=== PATIENT | female | born 1995 | race Caucasian/White ===

== ENCOUNTER 2017-01-16 09:32 | Observation (INO) | payer MEDICAID ==
[~2017-01-16] VITALS: Ht 160 cm; Wt 76.2 kg
[~2017-01-16 09:32] MED LIST: FERR325E14 PO; FOLI1TAB19 PO; PREN-385 PO
[2017-01-16 09:40] VITALS: BP 117/70
== END 2017-01-16 10:59 | disposition home or self-care (01) ==
LOC: MLD 09:32
PROVIDERS: ADMIT Obstetrics & Gynecology; ATTEND Obstetrics & Gynecology
DX: O62.9 Abnormality of forces of labor, unspecified (principal); Z3A.38 38 weeks gestation of pregnancy
CPT/HCPCS: 81000; G0378

== ENCOUNTER 2017-01-30 10:14 | Inpatient (IN) | payer MEDICAID ==
[~2017-01-30] VITALS: Ht 157.5 cm; Wt 75.0 kg
[2017-01-30 10:51] VITALS: BP 132/83
[2017-01-30] MEDS ORDERED: OXYTOCIN 20 UNITS in LACTATED RINGERS 1,000 ML IV SCH (13:47)
[2017-01-30] MEDS ORDERED: LACTATED RINGERS 1,000 ML IV SCH (13:47)
[2017-01-30] MEDS ORDERED: OXYTOCIN 10 UNITS/ML VIAL IM SCH (13:50)
[2017-01-30] MEDS ORDERED: NALBUPHINE 10 MG/ML AMP IVP PRN (13:50)
[2017-01-30 14:13] LABS: RED CELL DISTRIBUTION WIDTH 15.3 % (11.6-13.7)
[2017-01-30 14:16] LABS: BILIRUBIN,URINE NEGATIVE (NEGATIVE); BLOOD, URINE TRACE-L (NEGATIVE); COLOR,URINE YELLOW (YELLOW); LEUKOCYTE ESTERASE ,URINE 2+ (NEGATIVE); NITRITE, URINE POSITIVE (NEGATIVE); UGLUCOSE NEGATIVE (NEGATIVE)
[2017-01-30 14:26] LABS: BASOPHILS # (AUTO) 0.1 K/uL (0.00-0.22); BASOPHILS % (AUTO) 1.2 % (0.0-2.0); EOSINOPHILS # (AUTO) 0.1 K/uL (0-0.4); EOSINOPHILS % (AUTO) 0.9 % (0.0-4.0); HEMOGLOBIN 11.5 g/dL (12.0-16.0); LYMPHOCYTES # (AUTO) 1.8 K/uL (2.5-16.5); LYMPHOCYTES % (AUTO) 29.5 % (20.5-51.1); MEAN CORPUSCULAR HEMOGLOBIN 27 pg (27-31); MEAN CORPUSCULAR HGB CONC 33 g/dL (33-37); MEAN CORPUSCULAR VOLUME 81 fL (80-94); MONOCYTES # (AUTO) 0.5 K/uL (0.8-1.0); MONOCYTES % (AUTO) 7.9 % (1.7-9.3); NEUTROPHILS # (AUTO) 3.7 K/uL (1.8-7.7); NEUTROPHILS % (AUTO) 60.5 % (42.2-75.2); PLATELET COUNT (AUTO) 138 K/uL (140-450); WHITE BLOOD COUNT (AUTO) 6.2 K/uL (4.8-10.8)
[2017-01-30 14:29] LABS: APPEARANCE,URINE HAZY (CLEAR)
[2017-01-30 14:43] LABS: RBC,URINE 0-5 (RARE) /HPF (0-5)
[2017-01-30] MEDS: MISOPROSTOL 25 MCG TAB VG PRN ×2 (14:57→18:54)
[2017-01-30] MEDS ORDERED: MISOPROSTOL 25 MCG TAB ONE ×2 (15:03→18:51)
[2017-01-30] MEDS ORDERED: OXYTOCIN 10 UNITS/ML VIAL ONE (21:40)
[2017-01-30] MEDS ORDERED: OXYTOCIN 20 UNITS/LR PREMIX 1,000 ML IV ONE (21:40)
[2017-01-30] MEDS ORDERED: BENZOCAINE/MENTHOL 20%-0.5% 60 GM CAN TP PRN (22:10)
[2017-01-30] MEDS ORDERED: HYDROcodone/APAP 5/325 MG 1 TAB TAB PO PRN (22:10)
[2017-01-30] MEDS ORDERED: MEASLES, MUMPS, AND RUBELLA 1 VIAL SQVAC PRN (22:10)
[2017-01-30] MEDS ORDERED: METHYLERGONOVINE 0.2 MG/ML AMP IM PRN (22:10)
[2017-01-30] MEDS ORDERED: OXYTOCIN 10 UNITS/ML VIAL IM PRN (22:10)
[2017-01-30] MEDS ORDERED: oxyCODONE/APAP 5/325 MG 1 TAB TAB PO PRN (22:10)
[2017-01-30] MEDS ORDERED: TEMAZEPAM 15 MG CAP PO PRN (22:10)
[2017-01-30] MEDS ORDERED: HYDROcodone/APAP 5/325 MG 1 TAB TAB ONE (22:27)
[2017-01-31 06:18] LABS: HEMATOCRIT 34.7 % (36-48); HEMOGLOBIN 11.4 g/dL (12.0-16.0)
--- NOTE | 2017-01-31 09:58 | NUR ---
PATIENT HAS BEEN SCREENED AND CATEGORIZED LOW NUTRITION RISK. PATIENT WILL BE SEEN WITHIN 7 DAYS OF ADMISSION. 02/06/[address]
[2017-01-31] MEDS: IBUPROFEN 800 MG TAB PO PRN (19:37)
[2017-01-31] MEDS ORDERED: DOCUSATE SOD/SENNA 50/8.6 MG 1 TAB PO SCH (21:00)
[2017-02-01] MEDS ORDERED: IBUPROFEN 800 MG TAB ONE (09:08)
[2017-02-01] MEDS: IBUPROFEN 800 MG TAB PO PRN ×2 (09:09→20:32)
== END 2017-02-01 22:15 | disposition home or self-care (01) | DRG 560 ==
LOC: MLD 10:14 → OBSVTOIN 10:14 → MLD 13:35 → MFCC 01-31 00:15
PROVIDERS: ADMIT Obstetrics & Gynecology; ATTEND Obstetrics & Gynecology
PROC: 10E0XZZ Delivery of Products of Conception, External Approach (ICD-10-PCS; principal; 2017-01-30)
PROC: 3E0P7VZ Introduction of Hormone into Female Reproductive, Via Natural or Artificial Opening (ICD-10-PCS; 2017-01-30)
DX: O48.0 Post-term pregnancy (principal); Z37.0 Single live birth; Z3A.40 40 weeks gestation of pregnancy; Z28.21 Immunization not carried out because of patient refusal
CPT/HCPCS: 36415; 59200; 59409; 76819; 81001; 85018; 85025; 86592; 86886; 86900; 86901; 87086; J2590; J7120; Q0092